=== PATIENT | male | born 1960 | race African-American/Black ===

== ENCOUNTER 2020-11-14 18:54 | Emergency (ER) | payer MEDICAID, OTHER ==
[~2020-11-14] VITALS: Ht 185.4 cm; Wt 83.6 kg
[2020-11-14 22:21] VITALS: BP 130/68
== END 2020-11-14 22:59 | disposition home or self-care (01) ==
LOC: EMS 18:58
DX: L97.828 Non-pressure chronic ulcer of other part of left lower leg with other specified severity (principal)
CPT/HCPCS: 99284; 73610-TC; 73630-TC; Z7502